=== PATIENT | female | born 1990 | race Caucasian/White ===

== ENCOUNTER 2019-02-14 00:36 | Emergency (ER) | payer OTHER ==
[2019-02-14 01:10] LABS: ADD MAN DIFF? NO
[2019-02-14 01:12] LABS: ABNORMAL IP MESSAGE 1; BASOPHILS % 0.2 % (0.0-2.0); EOSINOPHILS % 0.1 % (0.0-7.0); HEMATOCRIT 35.6 % (37.0-47.0); HEMOGLOBIN 11.9 g/dl (12.0-16.0); LYMPHOCYTES % 34.3 % (15.0-51.0); MEAN CORPUSCULAR HEMOGLOBIN 30.1 pg (29.0-33.0); MEAN CORPUSCULAR HGB CONC 33.4 g/dl (32.0-37.0); MEAN CORPUSCULAR VOLUME 89.9 fl (82.0-101.0); MEAN PLATELET VOLUME 10.7 fl (7.4-10.4); MONOCYTE # 0.6 10^3/ul (0.3-0.9); MONOCYTES % 4.4 % (0.0-11.0); NEUTROPHILS % 60.8 % (39.0-77.0); PLATELET COUNT 291 10^3/UL (140-415); RED BLOOD COUNT 3.96 10^6/ul (4.20-5.40); RED CELL DISTRIBUTION WIDTH 11.9 % (11.5-14.5)
[2019-02-14 01:12] LABS: WHITE BLOOD COUNT 14.7 10^3/ul (4.8-10.8)
[2019-02-14] MEDS: SOD CHLORIDE 0.9% 1,000 ML IV (01:16)
[2019-02-14 01:24] LABS: POSITIVE DIFF @See below
[2019-02-14 01:29] LABS: ANION GAP 10 (5-13); BLOOD UREA NITROGEN 9 mg/dl (7-20); CALCIUM 9.1 mg/dl (8.4-10.2); CARBON DIOXIDE 25 mmol/L (21-31); CHLORIDE 107 mmol/L (97-110); CREATININE 0.66 mg/dl (0.44-1.00); Estimated GFR > 60 mL/min (>60); GLUCOSE 146 mg/dl (70-220); POTASSIUM 3.7 mmol/L (3.5-5.1); SODIUM 142 mmol/L (135-144)
[2019-02-14] MEDS: KETOROLAC 30 MG INJ IV (03:06)
== END 2019-02-14 05:15 | disposition home or self-care (01) ==
LOC: E/R 00:36
DX: S40.022A Contusion of left upper arm, initial encounter (principal); R40.2142 Coma scale, eyes open, spontaneous, at arrival to emergency department; R40.2362 Coma scale, best motor response, obeys commands, at arrival to emergency department; R40.2252 Coma scale, best verbal response, oriented, at arrival to emergency department; S59.902A Unspecified injury of left elbow, initial encounter; F12.929 Cannabis use, unspecified with intoxication, unspecified; I95.9 Hypotension, unspecified; R07.9 Chest pain, unspecified; V00.831A Fall from motorized mobility scooter, initial encounter
CPT/HCPCS: 29105; 71045; 73080-LT; 73090; 80048; 82962; 84703; 85025; 93005; 96361; 96374; 99285-25